=== PATIENT | male | born 1955 | race Caucasian/White ===

== ENCOUNTER 2022-02-03 12:08 | Inpatient (IN) | payer MEDICARE, MEDICAID ==
[2022-01-27 11:01] LABS: BASOPHILS # (AUTO) 0.1 X10'3 (0-0.2); BASOPHILS % (AUTO) 1.1 % (0-1); EOSINOPHILS # (AUTO) 0.2 X10'3 (0-0.9); EOSINOPHILS % (AUTO) 1.4 % (0-6); LYMPHOCYTES # (AUTO) 2.2 X10'3 (1.1-4.8); LYMPHOCYTES % (AUTO) 20.4 % (21-51); MEAN CORPUSCULAR HEMOGLOBIN 30.9 PG (27.0-31.0); MEAN CORPUSCULAR HGB CONC 33.7 g/dL (33.0-36.5); MEAN CORPUSCULAR VOLUME 91.5 FL (78-98); MEAN PLATELET VOLUME 7.8 FL (7.4-10.4); MONOCYTES # (AUTO) 0.9 X10'3 (0-0.9); MONOCYTES % (AUTO) 7.8 % (2-12); NEUTROPHILS # (AUTO) 7.6 X10'3 (1.8-7.7); NEUTROPHILS % (AUTO) 69.3 % (42-75); PRE OP HEMATOCRIT 46.1 % (42.0-52.0); PRE OP HEMOGLOBIN 15.6 g/dL (14.0-17.9); PRE OP PLATELET COUNT 356 X10'3 (140-440); RED BLOOD COUNT 5.04 X10'6 (4.70-6.10)
[2022-01-27 11:17] LABS: ALBUMIN/GLOBULIN RATIO 1.1 (1.1-1.5); ALKALINE PHOSPHATASE 110 IU/L (46-116); BLOOD UREA NITROGEN 14 MG/DL (7-18); BUN/CREATININE RATIO 16.7 (5.4-32.0); CALCIUM 9.1 MG/DL (8.5-10.1); CHLORIDE 103 MMOL/L (99-107); CREATININE 0.84 MG/DL (0.60-1.10); PRE OP ALT 21 U/L (30-65); PRE OP ANION GAP 10 (8-16); PRE OP AST 18 U/L (10-37); PRE OP BILIRUB, TOTAL 0.5 MG/DL (0.0-1.0); PRE OP GLUCOSE 108 MG/DL (70-104); PRE OP POTASSIUM 4.3 MMOL/L (3.4-5.1); PRE OP SODIUM 138 MMOL/L (135-145); TOTAL CARBON DIOXIDE 25.3 MMOL/L (24-32); TOTAL PROTEIN 7.8 G/DL (6.4-8.2); eGFR > 90 ML/MIN
[~2022-02-03] VITALS: Ht 175.3 cm; Wt 78.0 kg
[2022-02-03] VITALS (30 sets, daily range): BP systolic 117–150; BP diastolic 64–116
[~2022-02-03 12:08] MED LIST: ATOR40TA72 PO; BACL10TA2 PO; GABA-534 PO; INDOCYANINE GREEN 25 MG/10 ML VIAL IV ONE; LISI1TAB53 PO; OXYC1TAB17 PO; ceFAZolin inj. 2,000 MG in dextrose 5%-water 100 ML IV ONE; famotidine 20mg tablet PO ONE; ringers solution, lacted 1,000 ML IV SCH
[2022-02-03] MEDS ORDERED: BUPIVAcaine/PF 2.5mg/ml (0.25%) 10ml vial ONE (13:24)
[2022-02-03] MEDS ORDERED: LIDOcaine 1%/PF 5ML 10 MG/ML VIAL ONE (13:24)
[2022-02-03] MEDS ORDERED: fentaNYL/PF 50MCG/1 ML 2ML syringe ONE (13:58)
[2022-02-03] MEDS ORDERED: midazolam 1 mg/ML 2ml injection ONE (14:00)
[2022-02-03] MEDS ORDERED: rocuronium 10mg/ml inj IV ONE (14:04)
[2022-02-03] MEDS ORDERED: sevoflurane 250ml liquid IH ONE (14:04)
[2022-02-03] MEDS ORDERED: propofol inj 20 ML IV ONE (14:04)
[2022-02-03] MEDS ORDERED: LIDOcaine 2% (20mg/ml) 5ml vial ONE (14:04)
[2022-02-03] MEDS ORDERED: ondansetron/PF 4mg/2ml inj IV PRN (14:45)
[2022-02-03] MEDS ORDERED: meperidine/PF 25mg/ml syringe IV PRN ×2 (14:45)
[2022-02-03] MEDS ORDERED: proCHLORperazine 10 MG/2 ml inj IV PRN (14:45)
[2022-02-03] MEDS ORDERED: morphine 2 MG/ML inj. syringe IV PRN (14:45)
[2022-02-03] MEDS ORDERED: ringers solution, lacted 1,000 ML IV SCH (14:45)
[2022-02-03] MEDS ORDERED: dexamethasone sod phosphate 4mg/ml inj. ONE (15:15)
[2022-02-03] MEDS ORDERED: glycopyrrolate 0.2mg/ml inj ONE (15:15)
[2022-02-03] MEDS ORDERED: neostigmine methylsulfate 1 MG/ML 10ml vial ONE (15:15)
[2022-02-03] MEDS ORDERED: ondansetron/PF 4mg/2ml inj ONE (15:15)
[2022-02-03] MEDS ORDERED: ePHEDrine 50MG/ML INJ. ONE (15:15)
[2022-02-03] MEDS ORDERED: meperidine/PF 25mg/ml syringe ONE (15:41)
[2022-02-03] MEDS ORDERED: naloxone 0.4 mg/ml inj IV PRN (15:45)
--- NOTE | 2022-02-03 15:45 | NUR ---
Received from OR via BED, accompanied by Anesthesiologist DR SMITH and report given by Anesthesiologist AND PEDIATRIC CRITICAL CARE NURSE. PT PAINFUL, DEMEROL GIVEN, ABDOMEN W/4 LAP SITES W/BANAIDS CDI. Addendum: 02/03/22 at 1717 by Josette Pavon RN Amended: Links added.
[2022-02-03] MEDS: meperidine/PF 25mg/ml syringe IV PRN ×3 (15:53→18:23)
[2022-02-03] MEDS: morphine 4 MG/ML inj SYRINge IV PRN ×3 (16:46→17:33)
[2022-02-03] MEDS: oxyCODONE/APAP 10/325mg tablet PO PRN ×2 (17:49→21:43)
--- NOTE | 2022-02-03 18:45 | NUR ---
PTS PAIN REMAINS ABOUT A 7, PT STATES HIS BASELINE PAIN IS USUALLY ABOUT A 7 OR 8, DISCUSSED W/DR KAN, NO NEW ORDERS AT THIS TIME. Report called to receiving nurse. Transferred via BED W/2 BAGS OF Belongings AND CELL PHONE TO ROOM 4023A. BLL, CALL LIGHT GIVEN, SIDE RAILS UP X 2, PT ORIENTED TO ROOM, CALL LIGHT. RECEIVING RN NOTIFIED OF PTS ARRIVAL. Special Issues communicated to receiving nurse. YES. Addendum: 02/03/22 at 1853 by Josette Pavon RN Amended: Links added.
--- NOTE | 2022-02-03 18:50 | NUR ---
PATIENT ADMITTED TO ROOM 4023A FROM RECOVERY ROOM AFTER COLON RESECTION WAS DONE BY DR. KAN. PLACED COMFORTABLE IN BED. VITAL SIGNS MONITORED.
[2022-02-03] MEDS: baclofen 10mg tablet PO SCH (20:13)
[2022-02-03] MEDS: gabapentin 400mg capsule PO SCH (20:13)
[2022-02-04] MEDS: oxyCODONE/APAP 10/325mg tablet PO PRN ×3 (01:45→09:42)
--- NOTE | 2022-02-04 01:45 | NUR ---
Patient report given, questions answered & plan of care reviewed with TRINIDAD CABRERA.
--- NOTE | 2022-02-04 01:52 | NUR ---
Patient in room ORTHO 4023. I have received report from Sammy seymour and had the opportunity to ask questions and assume patient care. Addendum: 02/04/22 at 0153 by Earlene Velarde RN Amended: Links added.
[2022-02-04 02:00] VITALS: BP 115/64
[2022-02-04 06:13] LABS: BASOPHILS % (AUTO) 0.2 % (0-1); EOSINOPHILS % (AUTO) 0 % (0-6); HEMATOCRIT 36.5 % (42.0-52.0); HEMOGLOBIN 12.2 g/dl (14.0-17.9); LYMPHOCYTES # (AUTO) 1.3 X10'3 (1.1-4.8); LYMPHOCYTES % (AUTO) 8.9 % (21-51); MEAN CORPUSCULAR HEMOGLOBIN 31.1 PG (27.0-31.0); MEAN CORPUSCULAR HGB CONC 33.6 g/dL (33.0-36.5); MEAN CORPUSCULAR VOLUME 92.6 FL (78-98); MEAN PLATELET VOLUME 8.4 FL (7.4-10.4); MONOCYTES # (AUTO) 1.1 X10'3 (0-0.9); MONOCYTES % (AUTO) 7.7 % (2-12); NEUTROPHILS # (AUTO) 12.2 X10'3 (1.8-7.7); NEUTROPHILS % (AUTO) 83.2 % (42-75); PLATELET COUNT 248 X10'3 (140-440); RED BLOOD COUNT 3.94 X10'6 (4.70-6.10); RED CELL DISTRIBUTION WIDTH 14.8 % (11.5-14.5); WHITE BLOOD COUNT 14.6 X10'3 (4.5-11.0)
[2022-02-04 06:21] LABS: ALBUMIN 3.1 G/DL (3.4-5.0); ANION GAP 11 (8-16); BLOOD UREA NITROGEN 17 MG/DL (7-18); BUN/CREATININE RATIO 23.6 (5.4-32.0); CALCIUM 8.1 MG/DL (8.5-10.1); CHLORIDE 102 MMOL/L (99-107); CREATININE 0.72 MG/DL (0.60-1.10); GLUCOSE 97 MG/DL (70-104); SODIUM 138 MMOL/L (135-145); TOTAL CARBON DIOXIDE 25.3 MMOL/L (24-32); eGFR > 90 ML/MIN
--- NOTE | 2022-02-04 06:26 | NUR ---
Problems reprioritized. Patient report given, questions answered & plan of care reviewed with Reuben CABRERA. Addendum: 02/04/22 at 06 by Earlene Velarde RN Amended: Links added.
--- NOTE | 2022-02-04 06:37 | NUR ---
Patient in room ORTHO 4023. I have received report from RICK Henao and had the opportunity to ask questions and assume patient care.
[2022-02-04 07:03] VITALS: BP 146/78
[2022-02-04] MEDS: baclofen 10mg tablet PO SCH (07:23)
[2022-02-04] MEDS: gabapentin 400mg capsule PO SCH ×2 (07:23→12:49)
[2022-02-04] MEDS ORDERED: atorvastatin 20mg tablet PO SCH (08:00)
[2022-02-04] MEDS ORDERED: lisinopril 20mg tablet PO SCH (08:00)
[2022-02-04] MEDS ORDERED: enoxaparin 40mg/0.4ml syringe SQ SCH (08:00)
[2022-02-04] MEDS ORDERED: HYDROchlorothiazide 25mg tablet PO SCH (08:00)
[2022-02-04 10:49] VITALS: BP 135/63
[2022-02-04] MEDS ORDERED: oxyCODONE/APAP 10/325mg tablet PO ONE (12:35)
[2022-02-04] MEDS ORDERED: OXYC1TAB17 PO (12:54)
[2022-02-04 14:00] VITALS: BP 96/60
--- NOTE | 2022-02-04 15:27 | NUR ---
Discussed with patient discharge instructions and new prescription. Patient verbalizes understanding of teaching and states no further questions. 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
--- NOTE | 2022-02-04 16:50 | NUR ---
Patient dc'd with all personal belongings via wheelchair accpmpanued by x[facility] staff.
== END 2022-02-04 16:50 | disposition home or self-care (01) | DRG 419 ==
LOC: PAS 12:08 → ORTHO 4S 15:55
PROVIDERS: ADMIT Surgery; ATTEND Surgery
PROC: 0DBL4ZZ Excision of Transverse Colon, Percutaneous Endoscopic Approach (ICD-10-PCS; 2022-02-03)
PROC: 0WQF4ZZ Repair Abdominal Wall, Percutaneous Endoscopic Approach (ICD-10-PCS; 2022-02-03)
PROC: BF532Z0 Other Imaging of Gallbladder and Bile Ducts using Fluorescing Agent, Intraoperative (ICD-10-PCS; 2022-02-03)
PROC: 8E0W4CZ Robotic Assisted Procedure of Trunk Region, Percutaneous Endoscopic Approach (ICD-10-PCS; 2022-02-03)
PROC: 0FT44ZZ Resection of Gallbladder, Percutaneous Endoscopic Approach (ICD-10-PCS; principal; 2022-02-03 14:04)
DX: K80.20 Calculus of gallbladder without cholecystitis without obstruction (principal); K42.9 Umbilical hernia without obstruction or gangrene; Z79.899 Other long term (current) drug therapy
CPT/HCPCS: 36415; 80048; 80053; 82948; 85025; 87081; 93005; A4215; A4618; A6258; A7000; G0378; J0690; J1100; J1650; J2175; J2250; J2270; J2405; J2704; J2710; J3010; J3490; J7030; J7060; J7120